=== PATIENT | female | born 1995 | race Caucasian/White ===

== ENCOUNTER 2017-12-15 20:25 | Emergency (ER) | payer BC, OTHER ==
[~2017-12-15] VITALS: Ht 167.6 cm; Wt 54.5 kg
[~2017-12-15 20:25] MED LIST: AMOX500T PO; BIAX500T PO; OMEP20TA39 PO
[2017-12-15 20:53] VITALS: BP 166/73; PULSE 96; RESP 16; TEMP 98.4; O2SAT 100
[2017-12-15 21:21] VITALS: BP 129/76; PULSE 90; RESP 16; O2SAT 100
[2017-12-15] MEDS ORDERED: SODIUM CHLOR 0.9% 1000 ML INJ 1,000 ML IV ONE (21:27)
[2017-12-15] MEDS ORDERED: KETOROLAC TROMETHAMINE 30 MG/ML (IVP) VIAL IVP ONE (21:30)
[2017-12-15] MEDS ORDERED: PROCHLORPERAZINE INJ 10 MG/2 ML VIAL IVP ONE (21:30)
[2017-12-15] MEDS ORDERED: diphenhydrAMINE HCL 50 MG/ML VIAL IVP ONE (21:30)
[2017-12-15] MEDS ORDERED: SODIUM CHLORIDE 0.9% FLUSH 10 ML FLUSH IVF PRN (21:30)
--- NOTE | 2017-12-15 21:33 | PD ---
HPI Chief Complaint: Headache Time Seen by Provider: 21:19 Travel History International Travel<30 days: No Contact w/Intl Traveler<30days: No Traveled to known affect area: No History of Present Illness HPI The patient is a 22-year-old female that complains of a headache beginning yesterday. Yesterday the headache was behind her left eye and now it is in the right occipital area. Headache was of gradual onset. She does have a history of migraines. She does have photophobia/phonophobia and nausea yesterday but none today. He denies any focal neurologic change. She denies any stiffness in her neck and can flex her neck fully without any problem. She denies any fever. [facility] Past Medical History Diminished Hearing: No Migraines: Yes Tetanus Vaccination: Unknown Influenza Vaccination: No ?: Not LMP: 12/01/17 Social History Alcohol Use: No Tobacco Use: No Substance Use: No Allergies-Medications (Allergen,Severity, Reaction): Coded Allergies: No Known Allergies (Verified Adverse Reaction, Unknown, 12/15/17) Reported Meds & Prescriptions Reported Meds & Active Scripts Active No Active Prescriptions or Reported Medications Review of Systems Except as stated in HPI: all other systems reviewed are Neg Physical Exam Narrative GENERAL: The patient is alert, oriented 3 in slight apparent distress with her headache. Her vital signs show blood pressure 166/73. SKIN: Focused skin assessment warm/dry. No skin rash is present. HEAD: Atraumatic. Normocephalic. EYES: Pupils equal and round. No scleral icterus. No injection or drainage. Fundi appear sharp and venous pulsations are seen in the upright position. ENT: No nasal bleeding or discharge. Mucous membranes pink and moist. the tympanic membranes are clear and the throat is clear. There is no TMJ tenderness. There is no dental tenderness. NECK: Trachea midline. No JVD. The patient is able to flex her neck fully without any hesitation so that the chin touches her chest. There is no meningismus. CARDIOVASCULAR: Regular rate and rhythm. No murmur appreciated. RESPIRATORY: No accessory muscle use. Clear to auscultation. Breath sounds equal bilaterally. GASTROINTESTINAL: Abdomen soft, non-tender, nondistended. Hepatic and splenic margins not palpable. No guarding or rebound is present. MUSCULOSKELETAL: No obvious deformities. No clubbing. No cyanosis. No edema. NEUROLOGICAL: Awake and alert. No obvious cranial nerve deficits. Motor grossly within normal limits. Normal speech. PSYCHIATRIC: Appropriate mood and affect; insight and judgment normal. Data Data Last Documented VS Vital Signs Date Time Temp Pulse Resp B/P (MAP) Pulse Ox O2 Delivery O2 Flow Rate FiO2 12/15/17 22:01 93 16 116/71 (86) 100 Room Air 12/15/17 20:53 98.4 Orders Orders Ecg Monitoring (12/15/17 21:27) Iv Access Insert/Monitor (12/15/17 21:27) Oximetry (12/15/17 21:27) Sodium Chloride 0.9% Flush (Ns Flush) (12/15/17 21:30) Ketorolac Inj (Toradol Inj) (12/15/17 21:30) Prochlorperazine Inj (Compazine Inj) (12/15/17 21:30) Diphenhydramine Inj (Benadryl Inj) (12/15/17 21:30) Sodium Chlor 0.9% 1000 Ml Inj (Ns 1000 M (12/15/17 21:27) MDM Medical Decision Making Medical Screen Exam Complete: Yes Emergency Medical Condition: Yes Medical Record Reviewed: Yes Differential Diagnosis Migraine headache, tension headache, tension/migraine, tension headache, cluster headache, intracranial bleed-extremely unlikely Narrative Course It is now 10:49 PM and the patient's headache has resolved. She wants to go home. She will be given a prescription for Fioricet. Impression: Migraine headache Plan: The patient will follow up with her primary care physician next week. Diagnosis Primary Impression: Migraine headache Additional Instructions: As we discussed, follow-up with her primary care physician next week. Med/Other Pt SpecificInfo: Prescription(s) given Scripts Hbpakfbbpr-Guhvyumrokoyb-Izbcthif (Fioricet) 50-300-40 Mg Cap 2 CAP PO Q4H Y for HEADACHE, #30 CAP 0 Refills Prov: Jose D Jenkins MD 12/15/17 Disposition: 01 DISCHARGE HOME Condition: Stable Jose D Jenkins MD Dec 15, 2017 21:33
[2017-12-15 21:56] VITALS: O2SAT 100
[2017-12-15 22:01] VITALS: BP 116/71; PULSE 93; RESP 16; O2SAT 100
[2017-12-15] MEDS ORDERED: BUTA1CAP PO (22:50)
[2017-12-15] MEDS ORDERED: DILTIAZEM HCL 25 MG/5 ML VIAL IV ONE (23:00)
[2017-12-15 23:07] VITALS: BP 108/54
== END 2017-12-15 23:17 | disposition home or self-care (01) ==
LOC: PHED 20:25
DX: G43.909 Migraine, unspecified, not intractable, without status migrainosus (principal)
CPT/HCPCS: 96361; 96374; 96375; 99284; J0780; J1200; J1885; J7030